=== PATIENT | male | born 1970 | race Caucasian/White ===

== ENCOUNTER 2023-03-21 15:12 | Outpatient (CLI) | payer OTHER, SELFPAY ==
--- OUTSIDE RECORDS SUMMARY | 2023-03-21 15:23 | XMS_ITS | Clinical Summary ---
Author Name Unknown Organization [facility] Address [address] [place] [address] Care Team Providers Care Aerodynamics Professor Name Role Phone Medardo Marina MD Primary Care Provider [phone] Source Comments You are receiving this document as you are listed as the primary care provider,follow-up provider, or the patient has been referred to you for consultation.This is in compliance with the Medicare and[facility] E[facility] Incentive [facility],which states Providers who transition their patient to another setting of careor provider of care or refers their patient to another provider of care shouldprovide summary care record for each transition of care or referral. [facility] Allergies Active Allergy Reactions Criticality Noted Date Comments Erythromycin 11/11/2011 Medications Medication Sig Dispensed Refills Start Date End Date Status citalopram (AKA CELEXA) 10 MG tablet Take 10 mg by mouth daily (every 24 hours). 0 11/22/2011 Active traZODone (AKA DESYREL) 100 MG tablet Take 1 Tablet (100 mg) by mouth daily at bedtime. 0 11/22/2011 Active lisinopril (AKA ZESTRIL) 40 MG tablet Take 1 Tablet (40 mg) by mouth daily. 0 11/22/2011 Active fenofibrate (AKA LOFIBRA) 160 MG tablet Take 1 Tablet (160 mg) by mouth daily. 0 11/22/2011 Active HYDROcodone-acetami nophen (NORCO) 5-325 MG tablet Take 1-2 tablets by mouth. Q 4-6 H PRN 30 tablet 0 12/14/2011 Active Additional Information Patient not taking.Reported on 02/07/2023 metoprolol succinate (TOPROL XL) 100 MG 24 hour release tablet Take 1 Tablet (100 mg) by mouth daily. 0 01/13/2023 Active Active Problems No known active problems Encounters Date Type Department Care Team Description 02/07/2023 6:00 PM MACHINE STONECUTTER Office Visit [facility] [address] [place] [address] Maryam Larkin MD Bilateral impacted cerumen; Strep pharyngitis from Last 3 Months Social History Tobacco Use Types Packs/Day Years Used Date Smoking Tobacco: Every Day Cigarettes Alcohol Use Standard Drinks/Week Comments Yes 0 (1 standard drink = 0.6 oz pur e alcohol) 2/day hard liquor Sex and Gender Information Value Date Recorded Sex Assigned at Not on file Gender Identity Not on file Sexual Orientation Not on file Last Filed Vital Signs Vital Sign Reading Time Taken Comments Blood Pressure 105/73 02/07/2023 4:58 PM MACHINE STONECUTTER Pulse 72 02/07/2023 4:58 PM MACHINE STONECUTTER Temperature 36.6 ??C (97.8 ??F) 02/07/2023 4:58 PM CS T Respiratory Rate 16 02/07/2023 4:58 PM MACHINE STONECUTTER Oxygen Saturation 98% 02/07/2023 4:58 PM MACHINE STONECUTTER Inhaled Oxygen Concentration - - Weight 93 kg (205 lb) 12/09/2011 2:44 PM CDT Height 180.3 cm (5' 11) 12/09/2011 2:44 PM CDT Body Mass Index 28.59 12/09/2011 2:44 PM CDT Plan of Treatment Health Maintenance Due Date Last Done Comments Colon Cancer Screening Plan Due 1970 Hep C Screening (Preventive Services) 1970 HepB (1) 1970 PSA Screening Discussion 1970 COVID-19 Vaccine (#1) 01/04/1972 Pneumococcal (1 - PCV) 07/03/1977 HIV Screening (Preventive Services) 1987 Adult Preventive Visit 07/03/1989 Cholesterol 07/03/2006 DTaP/Tdap/Td (2 - Tdap) 02/24/2020 02/23/2010 Zoster/Shingles (1 of 2) 07/03/2021 Influenza (#1) 2022 HepA Aged Out No longer eligi ble based on patient's age to complete this topic Hib Aged Out No longer eligi ble based on patient's age to complete this topic IPV (Polio) Aged Out No longer eligi ble based on patient's age to complete this topic MCV4 Aged Out No longer eligi ble based on patient's age to complete this topic Procedures Procedure Name Priority Date/Time Associated Diagnosis Comments STREP GROUP A, MOLECULAR DETECTION STAT 02/07/2023 5:33 PM MACHINE STONECUTTER Strep pharyngitis from Last 3 Months Results * STREP GROUP A, Molecular Detection (02/07/2023 5:33 PM MACHINE STONECUTTER) Group A Strep Not Detected Not Detected 023 6:23 PM MACHINE STONECUTTER [facility] Comment:Methodology: Qualita tive real-time PCR assay Swab (Source Required) THROAT SWAB / Unknown Non-blood Collection / Unknown 02/07/2023 5:33 PM MACHINE STONECUTTER 02/07/2023 5:57 PM MACHINE STONECUTTER Maryam Larkin MD [facility] [address] [place] [address], [facility] [phone] from Last 3 Months Care Teams Aerodynamics Professor Relationship Specialty Start Date End Date Medardo Marina MD [facility] [address] [place] [address] PCP - General 12/23/11
--- OUTSIDE RECORDS SUMMARY | 2023-03-21 15:23 | XMS_ITS | Clinical Summary ---
Author Name Unknown Organization [facility] Address [place], [place] [address] Care Team Providers Care Wireless Sales Consultant Name Role Phone Floyd Banks MD Primary Care Provider + Allergies Active Allergy Reactions Criticality Noted Date Comments Erythromycin Rash Medium 11/09/2017 Medications Medication Sig Dispensed Refills Start Date End Date Status lisinopril (PRINIVIL; ZESTRIL) 40 mg tablet Take 1 tablet by mouth once daily. 0 11/09/2017 Active metoprolol succinate (TOPROL XL) 50 mg sustained-release tablet Take 1 tablet by mouth once daily. 0 11/09/2017 Active Active Problems Problem Noted Date Diagnosed Date Attention deficit hyperactiv ity disorder (ADHD), combined type 11/09/2017 Resolved Problems Problem Noted Date Diagnosed Date Resolved Date Ganglion 11/09/2017 11/09/2017 Family History Medical History Relation Name Comments Good Health Brother 1 Good Health Brother 2 Good Health Daughter Stroke Father Good Health Mother Good Health Sister Good Health Son Relation Name Status Comments Brother 1 Alive Brother 2 Alive Daughter Alive Father Alive Mother Alive Sister Alive Son Alive Social History Tobacco Use Types Packs/Day Years Used Date Smoking Tobacco: Some Days Cigarettes Smokeless Tobacco: Never Tobacco Cessation:Ready to Q uit: No; Counseling Given: Yes Alcohol Use Standard Drinks/Week Comments Yes 10 (1 standard drink = 0.6 oz pu re alcohol) PHQ-2 Answer Date Recorded PHQ-2 Score 0 04/24/2018 Sex and Gender Information Value Date Recorded Sex Assigned at Not on file Gender Identity Not on file Sexual Orientation Not on file Obstetrics History Last Filed Vital Signs Vital Sign Reading Time Taken Comments Blood Pressure 128/92 11/09/2017 11:45 AM CDT Pulse 86 11/09/2017 11:45 AM CDT Temperature - - Respiratory Rate - - Oxygen Saturation - - Inhaled Oxygen Concentration - - Weight 90.4 kg (199 lb 6.4 oz) 11/09/2017 11:45 AM CDT Height 178.4 cm (5' 10.25) 11/09/2017 11:45 AM CDT Body Mass Index 28.41 11/09/2017 11:45 AM CDT Plan of Treatment Health Maintenance Due Date Last Done Comments COVID-19 vaccine series (#1) 01/04/1972 Tdap 07/03/1982 HIV for age 15-65 07/03/1986 Hepatitis C screening for ag e 18-79 07/03/1989 Tetanus booster 1991 Colonoscopy through age 75 07/03/2016 Lipids for age 45-75 07/03/2016 BMI (ht and wt on same day) for age 18+ 11/09/2018 11/09/2017 Depression screening for age 12+ 11/09/2018 11/10/19 18 Zoster (shingles) series for age 50+ (1 of 2) 07/03/2021 Influenza for age 50-64 10/21/2022 Pneumococcal series for age 6-64 Aged Out No longer eligible based on patient's age to complete this topic Care Teams Wireless Sales Consultant Relationship Specialty Start Date End Date Floyd Banks MD PCP - General Family Practice 11/09/17
--- OUTSIDE RECORDS SUMMARY | 2023-03-21 15:23 | XMS_ITS | Encounter Summary ---
Author Name Unknown Organization [facility] Address [address] [place] [address] Care Team Providers Care Cad Administrator Name Role Phone Medardo Marina MD Primary Care Provider [phone] Reason for Visit * Reason Comments Fever Fever 103, sore thro at and irritating cough for 3 days Encounter Details Date Type Department Care Team Description 02/07/2023 6:00 PM INFECTION PREVENTIONIST Office Visit [facility] [address] [place] [address] Maryam Larkin MD [address] [place] [address] Bilateral impacted cerumen; Strep pharyngitis Social History Tobacco Use Types Packs/Day Years Used Date Smoking Tobacco: Every Day Cigarettes Alcohol Use Standard Drinks/Week Comments Yes 0 (1 standard drink = 0.6 oz pur e alcohol) 2/day hard liquor Sex and Gender Information Value Date Recorded Sex Assigned at Not on file Gender Identity Not on file Sexual Orientation Not on file documented as of this encounter Last Filed Vital Signs Vital Sign Reading Time Taken Comments Blood Pressure 105/73 02/07/2023 4:58 PM INFECTION PREVENTIONIST Pulse 72 02/07/2023 4:58 PM INFECTION PREVENTIONIST Temperature 36.6 ??C (97.8 ??F) 02/07/2023 4:58 PM CS T Respiratory Rate 16 02/07/2023 4:58 PM INFECTION PREVENTIONIST Oxygen Saturation 98% 02/07/2023 4:58 PM INFECTION PREVENTIONIST Inhaled Oxygen Concentration - - Weight - - Height - - Body Mass Index - - documented in this encounter Patient Instructions * Patient Instructions* Maryam Larkin MD - 02/07/2023 6:00 PM INFECTION PREVENTIONIST Do not use Q-tips to clean your ears as this can just push and pack the wax down in the ear canal. In the shower or bath try to get warm soapy water in the ears and rinse out with lots of warm water.You can also get an over the counter ear wax removal kit with drops and the bulb syringe to squirt warm water in the ear. Be sure the water is warm to the touch as cold water will cause dizziness. CTION PREVENTIONIST * Attachments The following attachments cannot be sent through Care Everywhere. * Earwax Blockage (Chinese) * Strep Throat (Chinese) documented in this encounter Progress Notes * Maryam Larkin MD - 02/07/2023 6:00 PM CST [facility] Patient: Dennis Claros Date of : 1970 (52 y.o.) Subjective Chief Complaint: Chief Complaint Patient presents with Fever Fever 103, sore throat and irritating cough for 3 days Nursing Notes: Amada Christianson RN 02/07/23 3857 Signed Dennis Claros is a 52 y.o.male presents to the Urgent Care for Fever (Fever 103, sore throat and irritating cough for 3 days ) History of Present Illness: Dennis Claros is a 52 y.o.male. Patient complains of symptoms of a URI.Onset of symptoms was 3 days ago. Symptoms include sore throat, fever, and cough. Patient denies: nasal congestion . gradually worsening since that time. Tmax: 103 without wheezing, dyspnea or hemoptysis, productive of green/yellow sputum Adverse Drug Reactions: Erythromycin Medications: HYDROcodone-acetaminophen, citalopram, fenofibrate, lisinopril, metoprolol succinate, and traZODone Social History: Social History Tobacco Use Smoking status: Every Day Types: Cigarettes Smokeless tobacco: Not on file Substance Use Topics Alcohol use: Yes Comment: 2/day hard liquor Drug use: No Review of Systems: Review of Systems is negative except as noted above. Objective Physical Exam: Vital Signs: BP 105/73 (BP Location: Right Arm, BP Cuff Size: Regular) Pulse 72 Temp 36.6 ??C (97.8 ??F) (Oral) Resp 16 SpO2 98% General: Appears alert and non distressed, He appears non toxic. Blood pressure 105/73, pulse 72, temperature 36.6 ??C (97.8 ??F), temperature source Oral, resp. rate 16, SpO2 98 %. HEENT: Head normocephalic and atraumatic Eyes Normal, conjunctiva normal without injection. PERRL. Ears: bilateral ear canals with impacted cerumen, after irrigation Right TM normal Left TM normal, external auditory canals without drainage. Throat: severe erythema, no peritonsillar masses or swelling. Neck: Soft, without cervical lymphadenopathy, no meningeal signs. Chest: normal air entry, no rhonchi and wheezes. Heart: HS normal with no murmurs. Laboratory Testing: Results for orders placed or performed in visit on 02/07/23 STREP GROUP A, Molecular Detection Result Value Ref Range Group A Strep Not Detected Not Detected Radiology: No results found. MDM: His pharyngitis is severe so will treat regardless of strep test results. Interventions: Orders Placed This Encounter STREP GROUP A, Molecular Detection Ear Wash - Bilateral amoxicillin (AMOXIL) 875 MG tablet Assessment 1. Bilateral impacted cerumen 2. Strep pharyngitis Plan Patient Discharge Medications & Instructions: Medications Prescribed this Visit Disp Refills Start End amoxicillin (AMOXIL) 875 MG tablet 20 Tablet 0 02/07/2023 02/17/2023 Take 1 Tablet (875 mg) by mouth two times a day for 10 days. Oral Patient Instructions Do not use Q-tips to clean your ears as this can just push and pack the wax down in the ear canal. In the shower or bath try to get warm soapy water in the ears and rinse out with lots of warm water.You can also get an over the counter ear wax removal kit with drops and the bulb syringe to squirt warm water in the ear. Be sure the water is warm to the touch as cold water will cause dizziness. Maryam Larkin MD CTION PREVENTIONIST documented in this encounter Nursing Notes * Amada Christianson RN - 02/07/2023 6:00 PM CST Dennis Claros is a 52 y.o.male presents to the Urgent Care for Fever (Fever 103, sore throat and irritating cough for 3 days ) CTION PREVENTIONIST documented in this encounter Plan of Treatment Not on file documented as of this encounter Procedures Procedure Name Priority Date/Time Associated Diagnosis Comments STREP GROUP A, MOLECULAR DETECTION STAT 02/07/2023 5:33 PM INFECTION PREVENTIONIST Strep pharyngitis documented in this encounter Results * STREP GROUP A, Molecular Detection (02/07/2023 5:33 PM INFECTION PREVENTIONIST) Group A Strep Not Detected Not Detected 023 6:23 PM INFECTION PREVENTIONIST [facility] Comment:Methodology: Qualita tive real-time PCR assay Swab (Source Required) THROAT SWAB / Unknown Non-blood Collection / Unknown 02/07/2023 5:33 PM INFECTION PREVENTIONIST 02/07/2023 5:57 PM INFECTION PREVENTIONIST Maryam Larkin MD [facility] [address] [place] [address], [facility] [phone] documented in this encounter Visit Diagnoses Diagnosis Bilateral impacted cerumen Impacted cerumen Strep pharyngitis Streptococcal sore throat documented in this encounter Care Teams Cad Administrator Relationship Specialty Start Date End Date Medardo Marina MD [facility] [address] [place] [address] PCP - General 12/23/11 documented as of this encounter
== END 2023-03-21 15:13 | disposition home or self-care (01) ==
PROVIDERS: PCP Family Medicine; Visit Provider Family Medicine
DX: M10.9 Gout, unspecified (principal); E78.5 Hyperlipidemia, unspecified
CPT/HCPCS: 80048; 80061; 84550; 85018

== ENCOUNTER 2024-05-29 09:26 | Outpatient (CLI) | payer OTHER, SELFPAY | END 2024-05-29 09:27 | disposition home or self-care (01) | PROVIDERS: PCP Family Medicine; Visit Provider Family Medicine | DX: I10 Essential (primary) hypertension (principal); E78.5 Hyperlipidemia, unspecified; Z12.5 Encounter for screening for malignant neoplasm of prostate | CPT/HCPCS: 80048; 80061; G0103 ==